=== PATIENT | female | born 1995 | race Caucasian/White ===

== ENCOUNTER 2021-08-05 09:08 | Emergency (ER) | payer MEDICAID, OTHER ==
[~2021-08-05] VITALS: Ht 162 cm; Wt 43.0 kg
[~2021-08-05 09:08] MED LIST: DCS100C PO; ENXP40I.4 SQ; IBP600T1 PO; IBP800T PO; OXYC-12 PO; OXYC-272 PO; PREN1TAB39 PO
[2021-08-05 09:32] LABS: BASOPHILS # (AUTO) 0.1 10^3/uL (0.0-0.1); BASOPHILS % (AUTO) 1 % (0-10); EOSINOPHILS # (AUTO) 0.1 10^3/uL (0.0-0.3); EOSINOPHILS % (AUTO) 2 % (0-10); HEMATOCRIT 42 % (35-52); HEMOGLOBIN 14.2 g/dL (11.5-16.0); LYMPHOCYTES # (AUTO) 2.2 10^3/uL (1.0-4.0); LYMPHOCYTES % (AUTO) 25 % (12-44); MEAN CORPUSCULAR HEMOGLOBIN 32 pg (25-34); MEAN CORPUSCULAR HGB CONC 34 g/dL (32-36); MEAN CORPUSCULAR VOLUME 95 fL (80-99); MEAN PLATELET VOLUME 10.1 fL (9.0-12.2); MONOCYTES # (AUTO) 0.6 10^3/uL (0.0-1.0); MONOCYTES % (AUTO) 7 % (0-12); NEUTROPHILS # (AUTO) 5.9 10^3/uL (1.8-7.8); NEUTROPHILS % (AUTO) 65 % (42-75); PLATELET COUNT 344 10^3/uL (130-400); WHITE BLOOD COUNT 9.1 10^3/uL (4.3-11.0)
[2021-08-05 09:45] LABS: CHLORIDE 101 MMOL/L (98-107); POTASSIUM 3.7 MMOL/L (3.6-5.0); SODIUM 139 MMOL/L (135-145)
[2021-08-05 09:46] LABS: ALBUMIN 4.3 GM/DL (3.2-4.5)
[2021-08-05 09:47] LABS: CALCIUM 9.9 MG/DL (8.5-10.1)
[2021-08-05 09:48] LABS: GLUCOSE 86 MG/DL (70-105); TOTAL PROTEIN 6.9 GM/DL (6.4-8.2)
[2021-08-05 09:49] LABS: CARBON DIOXIDE 22 MMOL/L (21-32)
[2021-08-05 09:50] LABS: BILIRUBIN,TOTAL 1.1 MG/DL (0.1-1.0)
[2021-08-05 09:52] LABS: ALKALINE PHOSPHATASE 48 U/L (40-136); CREATININE SERUM 0.81 MG/DL (0.60-1.30); GFR ESTIMATED 102
[2021-08-05 09:53] LABS: BUN/CREATININE RATIO 22
[2021-08-05 09:55] LABS: ALANINE AMINOTRANSFERASE 13 U/L (0-55); MAGNESIUM 2.1 MG/DL (1.6-2.4); SALICYLATE < 5.0 MG/DL (5.0-20.0)
[2021-08-05 09:57] LABS: ACETAMINOPHEN < 10 UG/ML (10-30)
[2021-08-05 12:37] LABS: CLARITY,URINE SL CLOUDY; COLOR,URINE YELLOW; GLUCOSE, URINE (UA) NEGATIVE (NEGATIVE); KETONES,URINE TRACE (NEGATIVE); LEUKOCYTE ESTERASE ,URINE NEGATIVE (NEGATIVE); NITRITE,URINE NEGATIVE (NEGATIVE); PROTEIN,URINE NEGATIVE (NEGATIVE)
[2021-08-05 12:53] LABS: BILIRUBIN,URINE 1+ (NEGATIVE)
[2021-08-05 12:54] LABS: BACTERIA,URINE TRACE /HPF
[2021-08-05 12:55] LABS: AMPHETAMINE SCREEN, URINE POSITIVE (NEGATIVE); BARBITURATE SCREEN URINE NEGATIVE (NEGATIVE); BENZODIAZEPINES SCREEN URINE NEGATIVE (NEGATIVE); CANNABINOID SCREEN, URINE NEGATIVE (NEGATIVE); COCAINE SCREEN URINE NEGATIVE (NEGATIVE); METHADONE STAT NEGATIVE (NEGATIVE); METHAMPHETAMINE SCREEN URINE S POSITIVE (NEGATIVE); OPIATE SCREEN URINE NEGATIVE (NEGATIVE); OXYCODONE STAT NEGATIVE (NEGATIVE); PROPOXYPHENE STAT NEGATIVE (NEGATIVE); TRICYCLIC ANTIDEPRESSANTS SCRE NEGATIVE (NEGATIVE)
--- NOTE | 2021-08-05 13:35 | ED Psychosocial ---
General Chief Complaint: Psych/Social Disorder Stated Complaint: SUICIDAL Nursing Triage Note: PT ARRIVED BY [facility], PT WAS FOUND BY PPD AND PT TOLD PPD THAT SHE WAS SUICIDAL, PT DENIES BEING SUICIDAL AT THIS X. PT EMACIATED, PT STATES HAS NOT EATEN FOR A FEW DAYS. PT IS VERY VERY SLOW TO ANSWER QUESTIONS, STATES HAS DID METH YESTERDAY. PT STARTLES WHEN SOUND IN ROOM IS MADE. PT LOOKING AROUND PARANOID. DENIES ANYONE HARMING HER. NO BRUISING NOTED ON BODY WHEN CHANGED INTO HOSPITAL [facility]. PT IS HOMELESS Source: patient, police, EMS, old records Exam Limitations: no limitations (KELLY LONGORIA MD) History of Present Illness Date Seen by Provider: Aug 05, 2021 Time Seen by Provider: 09:05 Initial Comments This 25-year-old young lady presents to the emergency room via EMS with expressions of suicidal ideation. She was found by local law enforcement walking on the street alone. When they stopped to check on her she expressed suicidal ideation. EMS was activated. She reports methamphetamine use to EMS. She is somewhat disoriented and is a poor historian. She seems a bit paranoid and easily distracted. She admits to using methamphetamines within the past 2 days. She does not have a reliable place to stay and has been sleeping in public places. She states she is from [place], [place]. She reports prior psychiatric admissions including an admission at [facility] in [place]. She does not know what her psychiatric diagnoses are. She denies ever attempting suicide in the past and has no specific plan for suicide at this time. She has no physical complaints. She is disheveled with matted hair and soiled skin. She is quite thin. Patient states she has not established with medical care or mental health services. Based on her medication filling record, it would appear she has been affiliated with [facility] in [place] in the past. Patient denies being victim of any harm or threats by others. (KELLY LONGORIA MD) Allergies and Home Medications Allergies Coded Allergies: No Known Drug Allergies (Unverified , 12/26/11) Patient Home Medication List Home Medication List Reviewed: Yes (KELLY LONGORIA MD) Enoxaparin Sodium (Lovenox) 40 Mg/0.4 Ml Disp.syrin, 1 EACH SQ DAILY, (Reported) Entered as Reported by: FELICITAS DEGROOT on 12/26/11 164 Ibuprofen (Motrin) 600 Mg Tab, 600 MG PO Q6HR PRN, (Reported) Entered as Reported by: HEBERT LOMAS on 01/26/12 09 Oxycodone Hcl/Acetaminophen (Percocet 5-325 Mg Tablet) 1 Each Tablet, 1-2 EACH PO Q 4-6 hours PRN, (Reported) Entered as Reported by: HEBERT LOMAS on 01/26/12 09 Vits W-Ca,Fe,Fa(<1MG) () 1 Each Tablet, 1 EACH PO DAILY, (Reported) Entered as Reported by: FELICITAS DEGROOT on 12/26/111641 Review of Systems Constitutional: see HPI EENTM: no symptoms reported Respiratory: no symptoms reported Cardiovascular: no symptoms reported Gastrointestinal: no symptoms reported Genitourinary: no symptoms reported : No Musculoskeletal: see HPI Skin: see HPI Psychiatric/Neurological: See HPI (KELLY LONGORIA MD) Past Uutvcjn-Citnlh-Zrpdfx Hx Patient Social History Tobacco Use?: No Substance use?: Yes Substance type: Methamphetamine Alcohol Use?: No (KELLY LONGORIA MD) Past Medical History Surgeries: Yes Appendectomy, Section, Orthopedic (Shoulder) Respiratory: No Cardiac: No Neurological: No : No Reproductive Disorders: No Genitourinary: No Gastrointestinal: No Musculoskeletal: No Endocrine: No HEENT: No Cancer: No Psychosocial: Yes (Prior psychiatric admissions for under clear diagnoses, suicidal ideation) Integumentary: No Blood Disorders: Yes (Possible protein S deficiency) (KELLY LONGORIA MD) Family Medical History Reviewed and Corrections made (KELLY LONGORIA MD) DVT Physical Exam Vital Signs - First Documented 08/05/21 08/05/21 09:09 23:48 Temp 36.7 Pulse 89 Resp 20 B/P (MAP) 133/85 (101) Pulse Ox 100 O2 Delivery Room Air (DEXTER BAUTISTA DO) Capillary Refill : Less Than 3 Seconds (KELLY LONGORIA MD) Height, Weight, BMI Height: '" Weight: lbs. oz. kg; 16.00 BMI Method: General Appearance: WD/WN, other (Appears distracted, paranoid, thin, disheveled, soiled skin, matted hair) HEENT: PERRL/EOMI, normal ENT inspection, other (Mucous membranes dry) Neck: normal inspection Respiratory: lungs clear, normal breath sounds, no respiratory distress Cardiovascular: regular rate, rhythm, no edema, no murmur Gastrointestinal: normal bowel sounds, non tender, soft Extremities: normal inspection, no pedal edema Neurologic/Psychiatric: circular saw edge fuser II-XII nml as tested, no motor/sensory deficits, alert, other (Confused historian, somewhat disoriented) Appearance/Memory: disheveled, impaired insight Behavior/Eye Contact: cooperative, other (Soft speech, poor communication) Thoughts/Hallucinations: other (Appears paranoid) Skin: normal color, warm/dry, other (Soiled skin) (KELLY LONGORIA MD) Progress/Results/Core Measures Results/Orders Lab Results (DEXTER BAUTISTA DO) Medications Given in ED Current Medications Medications Dose Ordered Sig/Olivia Route Start Time Stop Time Status Last Admin Dose Admin Hydroxyzine Pamoate 25 mg ONCE ONCE PO 08/07/21 14:15 08/07/21 14:16 DC 08/07/21 14:05 25 MG (DEXTER BAUTISTA DO) Vital Signs/I&O 08/07/21 08/07/21 08/07/21 15:54 19:30 22:03 Temp 36.2 36.9 Pulse 82 68 68 Resp 18 20 18 B/P (MAP) 105/66 148/72 137/73 Pulse Ox 99 100 99 O2 Delivery Room Air Room Air (DEXTER BAUTISTA DO) Blood Pressure Mean: 101 Progress Progress Note #1: Time: 13:39 Progress Note Patient's cognition has improved over time. She again confirms suicidal ideation without specific plan. Lab work-up is unremarkable. Urine drug screen was positive for amphetamine/methamphetamine. [facility] screener has been contacted. Progress Note #2: Time: 14:57 Progress Note I have contacted the [facility] screener. She has stated we should contact the facilities directly for inpatient admission since the patient is agreeable to psychiatric admission. I have visited with the patient again and she states admission seems like a good idea because she needs to get established with her medications again. She has not taken her medications since they were last filled in the fall. Cognition is much improved over the time of arrival. She is much more conversational. She confirms suicidal ideation. Progress Note #3: Time: 15:29 Progress Note Mary Lou is now getting inpatient and states she no longer thinks admission to a psychiatric facility is a good idea. She is wanting to leave. She states she would not be admitted voluntarily and wants to talk with the screener about a safety plan. Progress Note #4: Time: 16:37 Progress Note Renetta from [facility] came to screen Mary Lou. She was not prepared to develop a safety plan as Mary Lou does not have resources and personal support to backup a safety plan. Patient is still declining admission to an inpatient psychiatric facility even though a bed is presently available at [facility]. Renetta is therefore seeking admission to [facility]. Progress Note #5: Time: 18:00 Progress Note Patient has been medically cleared. She no longer appears acutely high, and it has been several hours since she arrived to the emergency room. She is able to converse freely and in a relatively logical manner now. She has been anxious and requested something to treat her anxiety. Hydroxyzine 10 mg was provided. Progress Note #6: Time: 12:15 Progress Note Patient slept through the night without incident. She complained of anxiety this morning and was given hydroxyzine. She still states that she is feeling suicidal but does not express a plan. Placement has been an issue for her. Because she would not consent to voluntary admission and had no resources to backup a safety plan, admission at [facility] was pursued. She is presently #11 on the waiting list. I explained the situation to the patient. I again inquired about her suicidal ideation which she confirms. Although I made the situation very clear and she seemed to express understanding, she still will not give me a firm commitment to a voluntary admission. We are therefore left with no other option then to continue pursuing involuntary admission at [facility]. (KELLY LONGORIA MD) Progress Note : Progress Note ASSUMED CARE OF PT AT SHIFT CHANGE. PLACEMENT AT [facility] IS PENDING. ALL INFORMATION HAS BEEN FAXED TO THEM 1899--STILL WAITING ON PLACEMENT AT [facility]. PT IS RESTING QUIETLY/SLEEPING. VITALS STABLE 2016--CALLED SCREENER, RENETTA, FOR UPDATE. SHE HAS NOT HEARD BACK FROM [facility]--SHE WILL CALL THEM FOR UPDATE AND CALL ME BACK. 2020--RENETTA CALLED BACK. SHE ADVISES THAT ALL INTAKE PERSONNEL AT [facility] LEFT AROUND [phone] AND NO ONE WOULD BE AVAILABLE TO REVIEW PT'S INFORMATION UNTIL TOMORROW MORNING, AFTER 0800. PT IS RESTING QUIETLY/SLEEPING. VITALS STABLE. 0600--CARE TURNED BACK OVER TO DR. LONGORIA AT SHIFT CHANGE. PT HAS SLEPT THROUGH THE [employer]IRE [employer] DIRECTOR. VITALS STABLE. 1800--ASSUMED CARE OF PT AGAIN FROM DR. TRUJILLO AT SHIFT CHANGE. PT HAS SLEPT/RESTED FOR MOST OF THE DAY. VITALS STABLE. PT IS STILL PENDING ADMIT TO [facility]. PAPERWORK HAS BEEN RE-SENT TO THEM TODAY FOR REVIEW. 0600--CARE TURNED BACK OVER TO DR. TRUJILLO. PT HAS SLEPT ALL NIGHT. VITALS STA BLE. 1800--ASSUMED CARE OF PT AGAIN AT SHIFT CHANGE. PT HAS BEEN ACCEPTED FOR ADMIT AT [facility] AND BED ASSIGNMENT HAS BEEN GIVEN. [facility] [employer] WILL BE ABLE TO TRANSPORT PT TOMORROW MORNING. PT IS AGREEABLE TO INPATIENT PSYCHIATRIC TREATMENT. PT DID SHOWER THIS MORNING, BUT REFUSED TO HAVE HAIR WASHED. PT HAS SLEPT FOR MOST OF THE DAY AND IS SLEEPING NOW. VITALS STABLE. 2144--HAVE JUST BEEN INFORMED THAT [facility] [employer] HAVE ARRANGED FOR TRANSPORT TONIGHT--WILL BE HERE IN APPROXIMATELY 30 MINUTES. THIS HAS BEEN COMMUNICATED WITH [facility] BY RN. 2224--[facility] [employer] HERE TO TRANSPORT PATIENT. (DEXTER BAUTISTA DO) Progress Note #1: Time: 12:53 Progress Note Care assumed at shift change. Patient resting comfortably. Involuntary Hold. Awaiting acceptance to [facility]. May consider admission as we were apparently told around 10am that she was 11th on the assessment/acceptance list. Progress Note #2: Time: 17:00 Progress Note Notified by [facility] that paperwork needed to be updated, corrected. She is still about 10th in line for admission. No issues throughout shift today. Progress Note #3: Time: 07:19 Progress Note 08/08/2019 @0719 Care assumed at shift change. No problems reported overnight. Pending acceptance/transfer to [facility]. Will have day shift reach out shortly to the [facility] and see where the patient is on their assessment list. Progress Note #4: Time: 15:12 Progress Note Called by Dr Bourne with [facility]. He accepts patient for admission at this time. She has been given 25mg Vistaril by mouth about 1 hour ago. No issues in behavior. (CEM TRUJILLO MD) Initial ECG Impression Date: Aug 05, 2021 Initial ECG Impression Time: 09:35 Initial ECG Rate: 80 Initial ECG Rhythm: Normal Sinus Initial ECG Intervals: Normal Initial ECG Impression: Normal Comment Normal sinus rhythm with no ST elevation or depression. AK interval shortened at 94. No axis deviation. (KELLY LONGORIA MD) Departure Impression Primary Impression: Suicidal ideation Additional Impressions: Methamphetamine use Homeless Disposition: XFER [facility]M HOSP Condition: Stable Transfer Transfer Reason: Exceeds level of care (KELLY LONGORIA MD) Transfer Time: 22:25 Method of Transfer: Law Enforcement ([facility] [employer]) (DEXTER BAUTISTA DO) Transfer Reason: Exceeds level of care Time Spoke to Accepting Phy: 15:10 Transfer Progress Notes Discussed with Dr Bourne [facility] Transfer Facility: [facility] Method of Transfer: Private Vehicle (CEM TRUJILLO MD) KELLY LONGORIA MD Aug 05, 2021 13:35 DEXTER BAUTISTA DO Aug 05, 2021 20:42 CEM TRUJILLO MD Aug 06, 2021 12:55
[2021-08-05] MEDS ORDERED: hydrOXYzine (ATARAX) 10 MG TAB PO ONE (16:00)
[2021-08-06] MEDS ORDERED: hydrOXYzine (VISTARIL/ATARAX) 25 MG capsule/tablet PO ONE ×2 (10:45→18:15)
[2021-08-07] MEDS ORDERED: hydrOXYzine (VISTARIL/ATARAX) 25 MG capsule/tablet ONE (14:03)
[2021-08-07] MEDS ORDERED: hydrOXYzine (VISTARIL/ATARAX) 25 MG capsule/tablet PO ONE (14:15)
[2021-08-07 22:29] VITALS: BP 137/73
== END 2021-08-07 22:29 | disposition short-term general hospital (02) ==
LOC: ER 09:08
DX: R45.851 Suicidal ideations (principal); F15.90 Other stimulant use, unspecified, uncomplicated; Z59.00 Homelessness unspecified; Z20.822 Contact with and (suspected) exposure to COVID-19
CPT/HCPCS: 80053; 80306; 81000; 83735; 84443; 84703; 85025; 87636; 93005; 99284; G0480 ×3; 36415; 80320; 80329